=== PATIENT | male | born 1980 | race Two or more races ===

== ENCOUNTER 2018-07-07 02:32 | Emergency (ER) | payer MEDICAID ==
[~2018-07-07] VITALS: Ht 177.8 cm; Wt 68.0 kg
[2018-07-07 03:00] VITALS: BP 167/84
== END 2018-07-07 07:18 | disposition left against medical advice (07) ==
LOC: EDBD 02:32 → ER 02:35
DX: F41.9 Anxiety disorder, unspecified (principal); Z53.21 Procedure and treatment not carried out due to patient leaving prior to being seen by health care provider